=== PATIENT | female | born 1985 | race Caucasian/White ===

== ENCOUNTER 2016-07-06 09:40 | Emergency (ER) | payer SELFPAY ==
[2016-07-06 09:59] VITALS: BP 108/73; BMI 29.6
--- NOTE | 2016-07-06 10:19 | DR.GENAD ---
HPI - PCP Primary Care Physician: NONE - HPI Comment HPI Comment: HISTORY BELOW. - Complaint/Symptoms Chief Complaint Doctors Comments: ABDOMINAL PAIN, DIFFUDE , MISS PERID AND NAUSEA TIMES 2 WEEKS. PATIENT DENIES DYSURIA, NO VAGINAL DISCHARGE. PATIENT HAVE REFLUX BUT NOT TAKING MEDICATION FOR IT. Chief Complaint:: PAIN UNDER RIBS FOR 2-3 WEEKS. AND SCRATCHING TO EYES. PT ALSO HAD 2 PERIODS LAST MONTH. STATES SHE SOMETIMES FEELS LIKE SOMEONE IS FONDLING HER - Nurses notes reviewed Nurses Notes Review: Yes - Source History Provided: Patient - Mode of Arrival Mode of Arrival: Ambulatory - Timing Onset of Chief Complaint: 06/15/16 Came on: Suddenly - Duration Duration: Constant Duration: Days PMH - PMH Past Medical History: Yes Past Medical History: Depression Past Medical History Comment: MANIAC DEPRESSION DX 2009. 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 Past Surgical History: Yes Surgical History: Ortho Surgery Past Surgical History Comment: TUBAL LIGATION - Family History History of Family Medical Conditions: Yes Family Medical History: Cancer, Coronary Artery Disease, Heart Failure, Hypertension - Social History Type of Tobacco Use: Cigarettes Alcohol Use: Occasionally Do you use any recreational Drugs:: Yes (COCAINE) Lives With: Alone Lives Where: Homeless - infectious screening In the last 2 months have you had wt loss of >10#?: NO Have you had fever, night sweats or hemotysis?: No Have you traveled outside the country in the last 6 months?: No Isolation: Standard ROS - Review of Systems Constitutional: Weakness, Fatigue. negative: Chills, Fever Eyes: No Symptoms Reported. negative: Eye Pain, Discharge ENTM: No Symptoms Reported. negative: Ear Pain, Nose Discharge, Nose Congestion , Throat Pain Respiratoy: Non-Productive Cough. negative: Short of Breath, Wheezing, Hemoptysis Cardiovascular: No Symptoms Reported. negative: Chest Pain, Edema Gastrointestinal/Abdominal: No Symptoms Reported, Abdominal Pain, Nausea. negative: Diarrhea, Vomiting Genitourinary: No Symptoms Reported. negative: Dysuria, Frequency, Hematuria Neurological: Headache, Weakness, Dizziness Musculoskeletal: Muscle Pain Integumentary: negative: Change in Color, Bruises, Juandice Hematologic/Lymphatic: No Symptoms Reported Endocrine: No Symptoms Reported All Other Systems: Reviewed and Negative PE - Vital Signs Vitals: Temperature 98.6 F Pulse Rate 77 Respiratory Rate 14 Blood Pressure 108/73 O2 Sat by Pulse Oximetry 100 - General Limitations: No Limitations General Appearance: Alert - Head Head Exam: Normal Inspection - Eyes Eye exam: Normal Appearance - ENT ENT Exam: Normal External Ear Exam External Ear Exam: Normal External Inspection TM/Canal Exam: Bilateral Normal Nose Exam: Normal Nose Exam Mouth Exam: Normal Inspection Throat Exam: Normal Inspection - Neck Neck Exam: Trachea Midline. negative: Tenderness, Meningismus, Lymphadenopathy - Chest Chest Inspection: Symmetric Chest Wall Rise - Respiratory Respiratory Exam: Normal Lung Sounds Bilat Respiratory Exam: Bilateral Clear to Auscultation - Cardiovascular Cardiovascular Exam: Regular Rate, Normal Rhythm, Normal Heart Sounds - Abdominal Exam Abdominal Exam: Normal Bowel Sounds, Soft, Tenderness Abdominal Tenderness: Diffuse, Moderate - Extremities Extremities Exam: Normal Inspection - Back Back Exam: Normal Inspection - Neurologic Neurological Exam: Alert, Oriented X3 - Psychiatric Psychiatric Exam: Normal Affect, Normal Mood - Skin Skin Exam: Normal Color MDM - Differential Diagnosis Differential Diagnosis: ABDOMINAL PAIN, H PYLORI GASTRITIS, PANCREATITS, UTI. AMMENORRHEA Course - Treatment Treatment: SEE ORDERS - Education/Counseling Education/Counseling: Patient, Education Educated On: Diagnosis, Needs for Follow Up ROR - Labs Reviewed Laboratory Results Reviewed?: Yes Result Diagrams: 07/06/16 10:39 07/06/16 10:39 Laboratory: WBC 5.6 X10^3/uL (3.6-10.0) 07/06/16 10:39 RBC 5.05 X10^6/uL (3.5-5.4) 07/06/16 10:39 Hgb 14.6 g/dL (12.0-16.0) 07/06/16 10:39 Hct 43.0 % (36.0-47.0) 07/06/16 10:39 MCV 85.2 fL (80.0-100.0) 07/06/16 10:39 MCH 29.0 pg (27.0-34.0) 07/06/16 10:39 MCHC 34.0 g/dL (33.0-35.0) 07/06/16 10:39 RDW 13.5 % (11.6-16.5) 07/06/16 10:39 Plt Count 162 X10^3/uL (150.0-450.0) 07/06/16 10:39 MPV 8.2 fL (7.4-11.0) 07/06/16 10:39 Neut % 52.2 % (42.0-75.0) 07/06/16 10:39 Lymph % 38.4 % (21.0-51.0) 07/06/16 10:39 [place] % 7.5 % (0.0-13.0) 07/06/16 10:39 Eos % 1.1 % (0.9-2.9) 07/06/16 10:39 Baso % 0.8 % (0.2-1.0) 07/06/16 10:39 Neut # 2.9 x10^3/uL (2.2-4.8) 07/06/16 10:39 Lymph # 2.2 X10^3/uL (1.3-2.9) 07/06/16 10:39 [place] # 0.4 x10^3/uL (0.3-0.8) 07/06/16 10:39 Eos # 0.1 x10^3/uL (0.0-0.2) 07/06/16 10:39 Baso # 0.0 X10^3/uL (0.0-0.1) 07/06/16 10:39 Absolute Nucleated RBC 0.0 /100WBC 07/06/16 10:39 Sodium 141 mmol/L (136-145) 07/06/16 10:39 Corrected Sodium TNP 07/06/16 10:39 Potassium 4.3 mmol/L (3.5-5.1) 07/06/16 10:39 Chloride 107 mmol/L (98-107) 07/06/16 10:39 Carbon Dioxide 24.7 mmol/L (21-32) 07/06/16 10:39 BUN 10 mg/dL (7-18) 07/06/16 10:39 Creatinine 0.78 mg/dL (0.55-1.02) 07/06/16 10:39 Est GFR (MDRD) Af Amer > 60 (>60) 07/06/16 10:39 Est GFR (MDRD) Non-Af > 60 (>60) 07/06/16 10:39 Glucose 84 mg/dL (65-99) 07/06/16 10:39 Calcium 8.7 mg/dL (8.5-10.1) 07/06/16 10:39 Corrected Calcium TNP 07/06/16 10:39 Total Bilirubin 0.20 mg/dL (0.2-1.0) 07/06/16 10:39 AST 12 Units/L (15-37) L 07/06/16 10:39 ALT 15 Units/L (12-78) 07/06/16 10:39 Alkaline Phosphatase 51 Units/L (46-116) 07/06/16 10:39 Total Protein 7.2 g/dL (6.4-8.2) 07/06/16 10:39 Albumin 3.7 g/dL (3.4-5.0) 07/06/16 10:39 Globulin 3.5 g/dL (2.5-4.5) 07/06/16 10:39 Albumin/Globulin Ratio 1.1 Ratio (1.1-2.1) 07/06/16 10:39 Amylase 68 Units/L (25-115) 07/06/16 10:39 Lipase 189 Units/L (73-393) 07/06/16 10:39 HCG, Qual Negative <10 mIU/mL 07/06/16 10:39 HCG, Quant Cancelled 07/06/16 10:39 Specimen Type Clean catch urine 07/06/16 11:04 Urine Color Yellow (YELLOW) 07/06/16 11:04 Urine Appearance Hazy (CLEAR) 07/06/16 11:04 Urine pH 6.0 (5.0 - 8.0) 07/06/16 11:04 Ur Specific [place] 1.015 (1.000-1.030) 07/06/16 11:04 Urine Protein Negative (NEGATIVE) 07/06/16 11:04 Urine Glucose (UA) Negative (NEGATIVE) 07/06/16 11:04 Urine Ketones Negative (NEGATIVE) 07/06/16 11:04 Urine Occult Blood 1+ (NEGATIVE) 07/06/16 11:04 Urine Nitrite Negative (NEGATIVE) 07/06/16 11:04 Urine Bilirubin Negative (NEGATIVE) 07/06/16 11:04 Urine Urobilinogen Normal (NORMAL) 07/06/16 11:04 Ur Leukocyte Esterase 2+ (NEGATIVE) 07/06/16 11:04 Urine RBC 0-3 /HPF (NEGATIVE) 07/06/16 11:04 Urine WBC 2-5 /HPF (NEGATIVE) 07/06/16 11:04 Ur Squamous Epith Cells Many /HPF (NEGATIVE) 07/06/16 11:04 Urine Bacteria Trace /HPF (NEGATIVE) 07/06/16 11:04 Ur Culture Indicated? No/not indicated 07/06/16 11:04 H. pylori IgG Antibody Positive (NEGATIVE) A 07/06/16 10:39 - XRAY XRAY Interpreted by: Radiologist XRAY Findings: REPORT DISCUSS WITH PATIENT. - Diagnosis Discharge Problem: Helicobacter pylori ab+, Helicobacter positive gastritis - Discharge Plan Disposition: HOME, SELF-CARE Condition: Stable Prescriptions: Ranitidine HCl [ZANTAC TAB 150 MG *] 150 mg PO BID #60 tab - Follow ups/Referrals Follow ups/Referrals: CHENG TOLEDO [STAFF PHYSICIAN] - 2 days NFD,None [Primary Care Provider] - 2 days - Instructions Instructions: Gastritis, Adult, [id number], Helicobacter Pylori Antibodies Test Additional Instructions: RETURN TO ED IF WORSE.
[2016-07-06 10:52] LABS: BASOPHILS % (AUTO) 0.8 % (0.2-1.0); EOSINOPHILS # (AUTO) 0.1 x10^3/uL (0.0-0.2); EOSINOPHILS % (AUTO) 1.1 % (0.9-2.9); HEMOGLOBIN 14.6 g/dL (12.0-16.0); LYMPHOCYTES # (AUTO) 2.2 X10^3/uL (1.3-2.9); LYMPHOCYTES % (AUTO) 38.4 % (21.0-51.0); MEAN CORPUSCULAR VOLUME 85.2 fL (80.0-100.0); MEAN PLATELET VOLUME 8.2 fL (7.4-11.0); MONOCYTES # (AUTO) 0.4 x10^3/uL (0.3-0.8); MONOCYTES % (AUTO) 7.5 % (0.0-13.0); NEUTROPHILS # (AUTO) 2.9 x10^3/uL (2.2-4.8); NEUTROPHILS % (AUTO) 52.2 % (42.0-75.0); PLATELET COUNT 162 X10^3/uL (150.0-450.0); RED BLOOD COUNT 5.05 X10^6/uL (3.5-5.4); RED CELL DISTRIBUTION WIDTH 13.5 % (11.6-16.5); WHITE BLOOD COUNT 5.6 X10^3/uL (3.6-10.0)
[2016-07-06 11:05] LABS: ALANINE AMINOTRANSFERASE 15 Units/L (12-78); ALBUMIN 3.7 g/dL (3.4-5.0); ALKALINE PHOSPHATASE 51 Units/L (46-116); AMYLASE 68 Units/L (25-115); ASPARTATE AMINO TRANSFERASE 12 Units/L (15-37); BLOOD UREA NITROGEN 10 mg/dL (7-18); CALCIUM 8.7 mg/dL (8.5-10.1); CARBON DIOXIDE 24.7 mmol/L (21-32); CHLORIDE 107 mmol/L (98-107); CREATININE 0.78 mg/dL (0.55-1.02); GLUCOSE 84 mg/dL (65-99); LIPASE 189 Units/L (73-393); SODIUM 141 mmol/L (136-145); TOTAL PROTEIN 7.2 g/dL (6.4-8.2); eGFR BLACK RACES > 60 (>60); eGFR NON BLACK RACES > 60 (>60)
[2016-07-06 11:29] LABS: BILIRUBIN,URINE NEGATIVE (NEGATIVE); BLOOD/HEMOGLOBIN,URINE 1+ (NEGATIVE); GLUCOSE, URINE NEGATIVE (NEGATIVE); KETONES,URINE NEGATIVE (NEGATIVE); LEUKOCYTE ESTERASE ,URINE 2+ (NEGATIVE); NITRITES,URINE NEGATIVE (NEGATIVE); PROTEIN,URINE NEGATIVE (NEGATIVE); UROBILINOGEN,URINE NORMAL (NORMAL)
[2016-07-06 11:36] LABS: APPEARANCE,URINE HAZY (CLEAR); COLOR,URINE YELLOW (YELLOW); RBC,URINE 0-3 /HPF (NEGATIVE)
[2016-07-06 11:37] LABS: BACTERIA,URINE TRACE /HPF (NEGATIVE); SQUAMOUS EPITHELIAL CELL,UR MANY /HPF (NEGATIVE)
[2016-07-06 12:27] LABS: SERUM PREGNANCY TEST, QUAL NEGATIVE <10 mIU/mL
--- NOTE | 2016-07-06 13:06 | RAD ---
HISTORY: Pain under ribs, mid abdominal bloating Study: Acute abdominal series Comparison: None Findings: The lungs are clear without consolidation, effusion or pneumothorax. The cardiac and mediastinal co ntours are within normal limits. Flat plate and upright evaluation of the abdomen demonstrates a normal bowel gas pattern. No gross f ree intraperitoneal air. No pathological soft tissue mass or calcification can be observed. The bon y structures are grossly intact. There is moderate retained stool. IMPRESSION: 1. No acute cardiopulmonary disease. 2. No evidence of acute abdominal pathology. Reported By:
[2016-07-06] MEDS ORDERED: ZANTAC PO ONE ×2 (13:35→13:39)
== END 2016-07-06 13:46 | disposition home or self-care (01) ==
LOC: ER 10:03
DX: R07.89 Other chest pain (principal); B96.81 Helicobacter pylori [H. pylori] as the cause of diseases classified elsewhere
CPT/HCPCS: 36415; 74022; 80053; 81001; 82150; 83690; 84703; 85025; 86677; 99282; 99283

== ENCOUNTER 2016-08-09 03:37 | Emergency (ER) | payer SELFPAY ==
[2016-08-09 03:53] VITALS: BMI 26.5
[2016-08-09 04:05] VITALS: BP 109/70
[2016-08-09] MEDS ORDERED: MAGIC MOUTHWASH MT ONE (04:20)
[2016-08-09] MEDS ORDERED: MOTRIN TAB 800 MG PO STA (04:21)
[2016-08-09] MEDS ORDERED: CLARITIN PO STA (04:21)
[2016-08-09] MEDS ORDERED: AMOXIL CAP 500 MG PO ONE ×2 (04:21→04:28)
--- NOTE | 2016-08-09 04:25 | DR.GENAD ---
HPI - PCP Primary Care Physician: YOUNG - Complaint/Symptoms Chief Complaint Doctors Comments: Patient complains of having sores in her mouth for the past 7-10 days getting worst last two days. She has been having nasal congestion. She denies fever, chills, nausea or vomitign. States she smokes 1/2 pack to one pack cigarettes daily. She does not have a local doctor or dentist because she has not insurance or money according to the gentleman with her. Patient states she is not allergic to anything. She denies cold, cough, sore throat, or any recent trauma. States she has had a bilateral tubaligation. Chief Complaint:: SORE THROAT AND MOUTH - Nurses notes reviewed Nurses Notes Review: Yes - Source History Provided: Patient, Family Member - Mode of Arrival Mode of Arrival: Ambulatory - Timing Onset of Chief Complaint: 08/07/16 Came on: Gradually - Duration Duration: Constant How lon Duration: Days - Location Location: innner mouth with sores - Severity Severity: Mild - Modifying Factors Worsens:: eating and drinking Improves:: nothing PMH - PMH Past Medical History: Yes Past Medical History: Anxiety, Depression Past Medical History Comment: PREVIOUS SUICIDAL ATTEMPTS Past Surgical History: Yes Surgical History: Ortho Surgery Past Surgical History Comment: TUBAL LIGATION - Family History History of Family Medical Conditions: Yes Family Medical History: Cancer, Coronary Artery Disease, Heart Failure, Hypertension - Social History Does patient currently use any type of tobacco product: No Have you used tobacco products in the last 12 months: No Type of Tobacco Use: Cigarettes Does any household member use tobacco: No Alcohol Use: None Do you use any recreational Drugs:: Yes (METH) Lives With: Friend Lives Where: Home - infectious screening In the last 2 months have you had wt loss of >10#?: NO Have you had fever, night sweats or hemotysis?: No Have you traveled outside the country in the last 6 months?: No Isolation: Standard ROS - Review of Systems Constitutional: No Symptoms Reported. negative: See HPI, Chills, Diaphoresis, Fever, Malaise, Weakness, Irritable, Fatigue, Loss of Appetite, Other Eyes: No Symptoms Reported ENTM: No Symptoms Reported, Nose Discharge (sore in mouth), Nose Congestion, Mouth Pain Respiratoy: No Symptoms Reported. negative: See HPI, Productive Cough, Non- Productive Cough, Moist Cough, Dry Cough, Hacking Cough, Barking Cough, Brassy Cough, Orthopnea, Short of Breath, Stridor, Wheezing, Hemoptysis, Other Cardiovascular: No Symptoms Reported. negative: See HPI, Chest Pain, Edema, Palpitations, Syncope, Cyanosis, Skin Mottling, Other Gastrointestinal/Abdominal: No Symptoms Reported. negative: See HPI, Abdominal Pain, Constipation, Diarrhea, Nausea, Vomiting, Food Intolerance, Other Genitourinary: No Symptoms Reported. negative: See HPI, Discharge, Dysuria, Frequency, Hematuria, Pain, Bleeding, Other Neurological: No Symptoms Reported, Anxiety Musculoskeletal: No Symptoms Reported Integumentary: No Symptoms Reported, Lesions (ulcer inner lip with erythematous rim with white cavity in center). negative: See HPI, Change in Color, Change in Hair/Nails, Dryness, Lumps, Rash, Itching, Wound, Bruises, Juandice, Other Hematologic/Lymphatic: No Symptoms Reported. negative: See HPI, Anemia, Blood Clots, Easy Bleeding, Easy Bruising, Swollen Glands, Lymphadenopathy, Other Endocrine: No Symptoms Reported Psychiatric: No Symptoms Reported PE - Vital Signs Vitals: Temperature 97.2 F Pulse Rate 73 Respiratory Rate 16 Blood Pressure 109/70 O2 Sat by Pulse Oximetry 98 - General Limitations: No Limitations General Appearance: Alert, In No Apparent Distress - Head Head Exam: Normal Inspection, Atraumatic, Normocephalic - Eyes Eye exam: Normal Appearance, PERRL, EOMI. negative: Scleral Icterus, Conjunctival Injection, Nystagmus, Miosis, Mydrasis, Periorbital Swelling, Periorbital Tenderness, Other - ENT ENT Exam: Normal Exam, Normal Oropharynx, Normal External Ear Exam, Mucous Membranes Moist, TM's Normal Bilaterally (left jaw with small apthous ulcer; no discharge or erythema) External Ear Exam: Normal External Inspection TM/Canal Exam: Bilateral Normal Nose Exam: Normal Nose Exam Mouth Exam: Normal Inspection. negative: Drooling (ulcer on inner lip), Trismus , Lip Swelling, Tongue Elevation, Tongue Swelling, Laceration, Other Throat Exam: Normal Inspection. negative: Tonsillar Erythema, Tonsillomegaly, Tonsillar Exudate, R Peritonsillar Mass, L Peritonsillar Mass, Muffled Voice, Other - Neck Neck Exam: Normal Inspection, Full ROM, Trachea Midline. negative: Tenderness, Meningismus, Lymphadenopathy, Thyromegaly, Other - Chest Chest Inspection: Normal Inspection, Symmetric Chest Wall Rise - Respiratory Respiratory Exam: Bilateral Clear to Auscultation - Cardiovascular Cardiovascular Exam: Regular Rate, Normal Rhythm, Normal Heart Sounds - Abdominal Exam Abdominal Exam: Normal Inspection, Normal Bowel Sounds, Soft. negative: Distention, Tenderness, Guarding, Rebound, Rigidity, Dimnished Bowel Sounds, Hyperactive Bowel Sounds, Hypoactive Bowel Sounds, Organomegaly, Trauma, Incision, Ascites, Mass, Bruit, Pulsatile Mass, Hernia, Other Abdominal Tenderness: negative: RUQ, RLQ, LUQ, LLQ, Epigastrium, Suprapubic, Diffuse, Mild, Moderate, Severe, Other - Extremities Extremities Exam: Normal Inspection, Full ROM, Normal Capillary Refill. negative: Tenderness, Edema, Joint Swelling, Calf Tenderness, Other - Back Back Exam: Normal Inspection, Full ROM. negative: Tenderness, (R) CVA Tenderness, (L) CVA Tenderness, Muscle Spasm, Paraspinal Tenderness, Vertebral Tenderness, Rashes, (R) Sciatic Notch Tenderness, (L) Sciatic Notch Tendern, (R ) Straight Leg Raise, (L) Straight Leg Raise, Other - Neurologic Neurological Exam: Alert, Oriented X3, CN II-XII Intact, Normal Gait, Reflexes Normal - Psychiatric Psychiatric Exam: Normal Affect, Normal Mood, Flat Affect - Skin Skin Exam: Warm, Dry, Intact, Normal Color. negative: Rash, Diaphoresis, Erythema - Diagnosis Discharge Problem: Aphthous ulcer of mouth, Dental caries Sinusitis Qualifiers: Sinusitis location: frontal Chronicity: acute - Discharge Plan Disposition: HOME, SELF-CARE Condition: Stable Prescriptions: Amoxicillin [AMOXIL CAP 500 MG *] 500 mg PO TID #30 cap Ibuprofen [MOTRIN TAB 800 MG *] 800 mg PO BID PRN #60 tab PRN Reason: Pain/Inflammation Lidocaine/Benadryl/Maalox [MAGIC MOUTHWASH (COMPOUND) *] 10 ml MT TID PRN #180 ml PRN Reason: MOUTH/THROAT PAIN - Follow ups/Referrals Follow ups/Referrals: NFD,None [Primary Care Provider] - 3 days Arcenio Salcedo [STAFF PHYSICIAN] - 3 days - Instructions Instructions: Oral Ulcers, Canker Sores, Dental Caries, Dental Care and Dentist Visits, Sinusitis, Adult
[2016-08-09] MEDS ORDERED: MOTRIN TAB 800 MG PO ONE (04:28)
[2016-08-09] MEDS ORDERED: CLARITIN ONE (04:28)
== END 2016-08-09 04:48 | disposition home or self-care (01) ==
LOC: ER 03:37
DX: K12.0 Recurrent oral aphthae (principal); J01.10 Acute frontal sinusitis, unspecified; K02.9 Dental caries, unspecified
CPT/HCPCS: 99281; 99282